=== PATIENT | female | born 1945 | race Caucasian/White ===

== ENCOUNTER 2017-09-23 10:41 | Emergency (ER) | payer OTHER, MEDICARE ==
[~2017-09-23] VITALS: Ht 157.5 cm; Wt 86.8 kg
[~2017-09-23 10:41] MED LIST: ASPI-232 PO; BISA5TAB PO; CALC500C50 PO; CITA40TA12 PO; FAMO20TA9 PO; HYDR25TA5 PO; MAGNESIUM PO; MELA5CAP PO; METO-478 PO; MULTTAB58 PO; NXM/40 PO; RXC5 PO; SNM/25100 PO; ZINC PO; ZOLP5TAB PO
[2017-09-23 10:43] VITALS: Ht 157.5 cm; Wt 86.8 kg
[2017-09-23] MEDS ORDERED: SODIUM CHLORIDE 0.9% 1000ML 1,000 ML IV STA (11:00)
[2017-09-23 11:26] LABS: BASO % 0.3 %; BASO ABS # 0.03 K/uL (0-0.2); EOS % 0.4 %; EOS ABS # 0.04 K/uL (0-0.5); HEMATOCRIT 31.8 % (37-47); HEMOGLOBIN 10.9 g/dL (12.0-16.0); IG# 0.05 K/uL (0.00-0.02); LYMPH % 13.9 %; LYMPH ABS # 1.57 K/uL (1.2-3.4); MEAN CELL VOLUME 87.6 fL (80-100); MEAN CORPUSCULAR HGB CONC 34.3 g/dl (32-36); MEAN PLATELET VOLUME 9.2 fL (7.4-10.4); MONO ABS # 0.91 K/uL (0.11-0.59); NEUT ABS # 8.71 K/uL (1.4-6.5); PLATELET COUNT 320 K/uL (130-400); RED CELL DISTRIBUTION WIDTH CV 14.5 % (11.5-14.5); RED CELL DISTRIBUTION WIDTH SD 46.9 fL (36.4-46.3); WHITE BLOOD COUNT 11.31 K/uL (4.8-10.8)
[2017-09-23] MEDS ORDERED: HYDR-5688 PO (11:48)
[2017-09-23 11:51] LABS: CALCIUM 9.4 mg/dl (8.5-10.1); CREATININE 0.9 mg/dl (0.60-1.20); POTASSIUM 3.9 mmol/L (3.5-5.1); TOTAL PROTEIN 8.1 gm/dl (6.4-8.2)
--- NOTE | 2017-09-23 11:52 | DIAGNOSTIC IMAGING REPORT ---
LUMBAR SPINE 2 OR 3 VIEWS CLINICAL HISTORY: 72 years-old Female presenting with lower back pain . TECHNIQUE: Frontal, lateral, and coned in lateral views of lumbar spine was obtained. COMPARISON: 03/30/2014. FINDINGS: Extensive postsurgical changes with bilateral transpedicular screw and cristóbal fixation of L2-S1 with connector rods extending to L1. A bridging connector cristóbal at L2-3 is noted. Multiple interbody spacers. Laminectomy defects also noted. Osteopenia. Vertebral body heights grossly maintained. Radiographic evaluation for neural foraminal narrowing is limited given the extensive hardware in the degree of osteopenia. No adjacent level degenerative change at T12-L1. No compression deformity or subluxation is apparent. No gross hardware complication. Multiple surgical clips noted in the prevertebral region at the level of L3-4. Atherosclerosis. Moderate stool burden in the left colon and marked stool burden in the right colon. IMPRESSION: 1. Extensive lumbar fusion hardware. No gross evidence of acute osseous injury. 2. Constipation. Electronically signed by: Kj Goff M.D. 09/23/2017 11:51 AM Dictated Date/Time: 09/23/2017 11:48 AM
[2017-09-23] MEDS ORDERED: OXYCODONE HCL IR 5 MG TAB (IMMEDIATE RELEASE) PO STA (12:52)
[2017-09-23 14:00] VITALS: BP 143/89; PULSE 89; TEMP 36.7; O2SAT 98
--- NOTE | 2017-09-23 17:44 | EMERGENCY ROOM VISIT NOTE ---
History Report prepared by Mundo: Millie Larkin Under the Supervision of: Dr. Júnior Davis D.O. First contact with patient: 10:48 Chief Complaint: WOUND INFECTION Stated Complaint: EXTREME DRANIAGE FROM INCISION History of Present Illness The patient is a 72 year old female who presents to the Emergency Room with complaints of a possible wound infection. She underwent back surgery on August [address] Riojas at [place] for a history of degenerative disc disease. Yesterday, she developed yellowish discharge from the surgical wound. Her daughter states she called and spoke to one of his partners last night and they were referred here to the ED. The patient rates her discomfort as a 4/10 in severity. She reports she did recently "slip and twisted my back", which also prompted increased pain. She denies any headaches or tingling and numbness in her extremities. Source of History: patient Onset: yesterday Position: back Symptom Intensity: 4/10 Timing: constant Modifying Factors (Worsening): movement Associated Symptoms: No headache, No numbness (in extremities) Review of Systems See HPI for pertinent positives & negatives. A total of 10 systems reviewed and were otherwise negative. Past Medical & Surgical Medical Problems: (1) DDD (degenerative disc disease) Social History Smoking Status: Never Smoker Alcohol Use: none Drug Use: none Marital Status: Housing Status: lives with family Occupation Status: retired Current/Historical Medications Scheduled Aspirin (Aspir-81), 81 MG PO QPM Calcium Carbonate (Antacid) (Tums), 2 TAB PO PRN Citalopram Hydrobromide (Celexa), 40 MG PO QAM Esomeprazole Magnesium (Nexium), 40 MG PO QAM Famotidine (Pepcid), 20 MG PO HS Hydrochlorothiazide (Hydrochlorothiazide), 25 MG PO QAM Melatonin (Melatonin), 5 MG PO HS Metoprolol Succinate (Toprol Xl), 25 MG PO BID Multiple Vitamin (Multivitamin), 1 TAB PO QAM Zolpidem Tartrate (Ambien), 2.5 MG PO HS [Magnesium+Zinc], 1 TAB PO QAM Scheduled PRN Bisacodyl (Bisacodyl Laxative), 5 MG PO DAILY PRN for PRN Hydrocodone/Acetaminophen 5MG/325MG ([place] 5MG/325MG), 1 TABLET PO Q4 PRN for Pain Levodopa/Carbidopa (Sinemet 25MG/100MG), 1 TAB PO HS PRN for PRN Allergies Coded Allergies: Ketorolac Tromethamine (Verified Allergy, Severe, ANAPHYLACTIC SHOCK, 09/23) Codeine (Unverified Adverse Reaction, Unknown, NAUSEA AND VOMITING, ) Fentanyl (Unverified Adverse Reaction, Unknown, NAUSEA AND VOMITING, ) Iodinated Diagnostic Agents (Unverified Adverse Reaction, Unknown, NAUSEA , 09/23/17) Meperidine (Unverified Adverse Reaction, Unknown, NAUSAE AND VOMITING, ) Physical Exam Vital Signs Date Time Temp Pulse Resp B/P (MAP) Pulse Ox O2 Delivery O2 Flow Rate FiO2 09/23/17 14:00 36.7 89 16 143/89 98 09/23/17 13:41 89 16 143/89 98 Room Air 09/23/17 10:43 36.7 95 18 136/76 100 Room Air Physical Exam GENERAL: Sitting up in bed, alert, well appearing, well nourished, no distress, non-toxic EYE EXAM: normal conjunctiva. OROPHARYNX: no exudate, no erythema, lips, buccal mucosa, and tongue normal and mucous membranes are moist NECK: supple, no nuchal rigidity, no adenopathy, non-tender LUNGS: Clear to auscultation. Normal chest wall mechanics HEART: no murmurs, S1 normal and S2 normal ABDOMEN: abdomen soft, non-tender, normo-active bowel sounds, no masses, no rebound or guarding. BACK: Dressing in place in lower thoracic to upper lumbar region, soaked with yellow drainage, mild erythema along the upper portion of the incision, with small amount of green scabbing material present. SKIN: no rashes and no bruising UPPER EXTREMITIES: upper extremities are grossly normal. LOWER EXTREMITIES: No pitting edema. NEURO EXAM: Normal sensorium, cranial nerves II-XII grossly intact, normal speech, no gross weakness of arms, no gross weakness of legs. Gross sensation intact. Medical Decision & Procedures ER Provider Diagnostic Interpretation: Radiology results as stated below per my review and the radiologist's interpretation: LUMBAR SPINE 2 OR 3 VIEWS CLINICAL HISTORY: 72 years-old Female presenting with lower back pain . TECHNIQUE: Frontal, lateral, and coned in lateral views of lumbar spine was obtained. COMPARISON: 03/30/2014. FINDINGS: Extensive postsurgical changes with bilateral transpedicular screw and cristóbal fixation of L2-S1 with connector rods extending to L1. A bridging connector cristóbal at L2-3 is noted. Multiple interbody spacers. Laminectomy defects also noted. Osteopenia. Vertebral body heights grossly maintained. Radiographic evaluation for neural foraminal narrowing is limited given the extensive hardware in the degree of osteopenia. No adjacent level degenerative change at T12-L1. No compression deformity or subluxation is apparent. No gross hardware complication. Multiple surgical clips noted in the prevertebral region at the level of L3-4. Atherosclerosis. Moderate stool burden in the left colon and marked stool burden in the right colon. IMPRESSION: 1. Extensive lumbar fusion hardware. No gross evidence of acute osseous injury. 2. Constipation. Electronically signed by: Kj Goff M.D. 09/23/2017 11:51 AM Laboratory Results 09/23/17 11:00 Red Blood Count 3.63, Mean Corpuscular Volume 87.6, Mean Corpuscular Hemoglobin 30.0, Mean Corpuscular Hemoglobin Concent 34.3, Mean Platelet Volume 9.2, Neutrophils (%) (Auto) 77.0, Lymphocytes (%) (Auto) 13.9, Monocytes (%) (Auto) 8.0, Eosinophils (%) (Auto) 0.4, Basophils (%) (Auto) 0.3, Neutrophils # (Auto) 8.71, Lymphocytes # (Auto) 1.57, Monocytes # (Auto) 0.91, Eosinophils # (Auto) 0.04, Basophils # (Auto) 0.03 09/23/17 11:00 Test 09/23/17 11:00 White Blood Count 11.31 K/uL (4.8-10.8) Red Blood Count 3.63 M/uL (4.2-5.4) Hemoglobin 10.9 g/dL (12.0-16.0) Hematocrit 31.8 % (37-47) Mean Corpuscular Volume 87.6 fL (80-100) Mean Corpuscular Hemoglobin 30.0 pg (25-34) Mean Corpuscular Hemoglobin Concent 34.3 g/dl (32-36) Platelet Count 320 K/uL (130-400) Mean Platelet Volume 9.2 fL (7.4-10.4) Neutrophils (%) (Auto) 77.0 % Lymphocytes (%) (Auto) 13.9 % Monocytes (%) (Auto) 8.0 % Eosinophils (%) (Auto) 0.4 % Basophils (%) (Auto) 0.3 % Neutrophils # (Auto) 8.71 K/uL (1.4-6.5) Lymphocytes # (Auto) 1.57 K/uL (1.2-3.4) Monocytes # (Auto) 0.91 K/uL (0.11-0.59) Eosinophils # (Auto) 0.04 K/uL (0-0.5) Basophils # (Auto) 0.03 K/uL (0-0.2) RDW Standard Deviation 46.9 fL (36.4-46.3) RDW Coefficient of Variation 14.5 % (11.5-14.5) Immature Granulocyte % (Auto) 0.4 % Immature Granulocyte # (Auto) 0.05 K/uL (0.00-0.02) Urine Color DK YELLOW Urine Appearance CLEAR (CLEAR) Urine pH 5.5 (4.5-7.5) Urine Specific [place] 1.033 (1.000-1.030) Urine Protein 1+ (NEG) Urine Glucose (UA) NEG (NEG) Urine Ketones TRACE (NEG) Urine Occult Blood NEG (NEG) Urine Nitrite NEG (NEG) Urine Bilirubin NEG (NEG) Urine Urobilinogen NEG (NEG) Urine Leukocyte Esterase NEG (NEG) Urine WBC (Auto) 1-5 /hpf (0-5) Urine RBC (Auto) 10-30 /hpf (0-4) Urine Hyaline Casts (Auto) /lpf (0-5) Urine Epithelial Cells (Auto) >30 /lpf (0-5) Urine Bacteria (Auto) NEG (NEG) Urine Pathogenic Casts /lpf (0) Anion Gap 8.0 mmol/L (3-11) Est Creatinine Clear Calc Drug Dose 56.9 ml/min Estimated GFR () 73.5 Estimated GFR (Non- 63.4 BUN/Creatinine Ratio 20.7 (10-20) Calcium Level 9.4 mg/dl (8.5-10.1) Total Bilirubin 0.4 mg/dl (0.2-1) Direct Bilirubin 0.1 mg/dl (0-0.2) Aspartate Amino Transf (AST/SGOT) 40 U/L (15-37) Alanine Aminotransferase (ALT/SGPT) 40 U/L (12-78) Alkaline Phosphatase 111 U/L (45-117) Total Protein 8.1 gm/dl (6.4-8.2) Albumin 3.0 gm/dl (3.4-5.0) Lipase 153 U/L (73-393) Laboratory results per my review. Medications Administered Medications (Trade) Dose Ordered Sig/Luis Route Start Time Stop Time Status Last Admin Dose Admin Sodium Chloride 1,000 ml @ 999 mls/hr Q1H1M STAT IV 09/23/17 11:00 09/23/17 12:00 DC 09/23/17 11:41 999 MLS/HR Oxycodone HCl (Roxicodone Immediate Rel Tab) 5 mg NOW STAT PO 09/23/17 12:52 09/23/17 12:53 DC 09/23/17 13:03 5 MG ED Course ED COURSE: Vital signs were reviewed and showed normal vital signs. The patients medical record was reviewed The above diagnostic studies were performed and reviewed. ED treatments and interventions as stated above. 1056: The patient was evaluated in room C4. A complete history and physical examination was performed. 1100: NSS 1000 ml @ 999 mls/hr IV. 1151: I discussed the patients case with Dr. Lares, [facility]. He will call me back. 1252: I reevaluated the patient. She is resting comfortably and has been updated on her results so far. 1252: Oxycodone HCl 5 mg PO. 1347: I discussed the patients case with Dr. Lares [facility]. He recommends outpatient follow up. 1400: Upon reevaluation, the patient is resting comfortably and feeling better. I discussed my findings with the patient and she understands and agrees with the treatment plan. Based on the patients age, coexisting illnesses, exam and lab findings the decision to treat as an outpatient was made. The patient remained stable while under my care. The patient appeared well at the time of discharge. Medical Decision Differential diagnosis includes etiologies such as cellulitis, abscess, MRSA infection, DVT, necrotizing fasciitis, dermatitis, drug eruption, as well as others were entertained. Patient is a 72-year-old female who presents the ER for drainage from her back surgery which was performed on August [address] Clements at [place]. Patient has been draining clear drainage. Patient has no fevers. She notes this started when she twisted yesterday. Patient has no other complaints with exception of feeling very tired. CBC along with BMP, LFTs, bilirubin and lipase is unremarkable. UA was unremarkable. X-rays of lumbar spine were unremarkable as well. Discussed with orthopedics on 2 separate occasions. They are unable to come into the ER and request that she be transferred to the office. Patient family were updated in regards this. She was given oral OxyIR while here. Discussed with Pt concerning signs and symptoms to watch out for. Pt was instructed to follow up with their PCP and discussed with the patient their option to return to the ED at anytime for persistent or worsening symptoms. The appropriate anticipatory guidance and out-patient management, including indications for return to the emergency department, were explained at length to the patient and understood. Medication Reconcilliation Current Medication List: was personally reviewed by me Blood Pressure Screening Patient's blood pressure: Elevated blood pressure Blood pressure disposition: Referred to PCP Consults Time Called: 1102 Consulting Physician: Dr. Lares, [facility] Returned Call: 1151 I discussed the patients case with Dr. Lares, [facility]. He will call me back. Impression Primary Impression: Wound dehiscence Additional Impression: Post op infection Scribe Attestation The scribe's documentation has been prepared under my direction and personally reviewed by me in its entirety. I confirm that the note above accurately reflects all work, treatment, procedures, and medical decision making performed by me. Departure Information Dispostion Home / Self-Care Referrals No Doctor, Assigned (PCP) Patient Instructions ED Wound Infec After Surgery, Incision Care D[facility], My [facility] Additional Instructions Please go directly to Dr. Lares's office. Problem Qualifiers Additional Impression: Post op infection Encounter type: initial encounter Qualified Codes: T81.4XXA - Infection following a procedure, initial encounter
== END 2017-09-23 14:00 | disposition home or self-care (01) ==
LOC: C.EDB 10:43 → C.EDC 14:00
DX: T81.30XA Disruption of wound, unspecified, initial encounter (principal); T81.4XXA Infection following a procedure, initial encounter; X58.XXXA Exposure to other specified factors, initial encounter; R03.0 Elevated blood-pressure reading, without diagnosis of hypertension; Z79.82 Long term (current) use of aspirin; Z88.6 Allergy status to analgesic agent; Z91.041 Radiographic dye allergy status

== ENCOUNTER → 2017-09-27 | Outpatient (CLI) | payer OTHER, MEDICARE ==
[~2017-09-27] MED LIST changes: +HYDR-5688 PO; -RXC5 PO
== END | disposition home or self-care (01) ==
LOC: C.LABSPEC 10:51
PROVIDERS: ATTEND Orthopaedic Surgery Orthopaedic Surgery of the Spine
DX: Z98.1 Arthrodesis status (principal)